=== PATIENT | female | born 1935 | race Caucasian/White ===

== ENCOUNTER 2024-04-14 16:07 | Inpatient (IN) | payer BC, MEDICAID ==
[~2024-04-14] VITALS: Ht 172.7 cm; Wt 100.0 kg
[2024-04-14 16:32] LABS: BASOPHILS % (AUTO) 0.2 % (0-1); EOSINOPHILS # (AUTO) 0.2 X10'3 (0-0.9); EOSINOPHILS % (AUTO) 2.3 % (0-6); HEMATOCRIT 28.3 % (35.0-45.0); HEMOGLOBIN 9.5 g/dl (12.0-16.0); LYMPHOCYTES # (AUTO) 0.8 X10'3 (1.1-4.8); LYMPHOCYTES % (AUTO) 9.6 % (21-51); MEAN CORPUSCULAR HEMOGLOBIN 30.8 PG (27.0-31.0); MEAN CORPUSCULAR HGB CONC 33.5 g/dL (33.0-36.5); MEAN PLATELET VOLUME 8.6 FL (7.4-10.4); MONOCYTES # (AUTO) 0.8 X10'3 (0-0.9); MONOCYTES % (AUTO) 9.5 % (2-12); NEUTROPHILS # (AUTO) 6.3 X10'3 (1.8-7.7); NEUTROPHILS % (AUTO) 78.4 % (42-75); PLATELET COUNT 270 X10'3 (140-440); RED BLOOD COUNT 3.07 X10'6 (4.20-5.60); RED CELL DISTRIBUTION WIDTH 15.9 % (11.5-14.5)
[2024-04-14 16:52] LABS: ALANINE AMINOTRANSFERASE 12 U/L (12-78); ALBUMIN 3.3 G/DL (3.4-5.0); ALBUMIN/GLOBULIN RATIO 0.9 (1.1-1.5); ALKALINE PHOSPHATASE 57 IU/L (46-116); ANION GAP 6 (8-16); ASPARTATE AMINO TRANSFERASE 12 U/L (10-37); BILIRUBIN,TOTAL 0.4 MG/DL (0.1-1.0); BLOOD UREA NITROGEN 75 MG/DL (7-18); BUN/CREATININE RATIO 34.1 (10.0-20.0); CALCIUM 9.3 MG/DL (8.5-10.1); CHLORIDE 106 MMOL/L (99-107); GLUCOSE 88 MG/DL (70-104); POTASSIUM 5.1 MMOL/L (3.5-5.1); SODIUM 139 MMOL/L (135-145); TOTAL CARBON DIOXIDE 26.7 MMOL/L (24-32); TOTAL PROTEIN 7.1 G/DL (6.4-8.2); eCRCL 19 ML/MIN; eGFR 21 ML/MIN
[2024-04-14 17:02] LABS: PRO BRAIN NATRIURETIC PEPTIDE 16128 PG/ML (0-450)
[2024-04-14] MEDS: normal saline 500ml IV soln 500 ML IV ONE ×2 (17:23→17:24)
[2024-04-14] MEDS ORDERED: magnesium hydroxide 30ml (MOM) UD suspension PO PRN (20:35)
[2024-04-14] MEDS ORDERED: potassium Cl 20 mEq SR tablet PO PRN (20:35)
[2024-04-14] MEDS ORDERED: ondansetron/PF 4mg/2ml inj IV PRN (20:35)
[2024-04-14] MEDS ORDERED: acetaminophen 325mg tablet PO PRN (20:35)
[2024-04-14] MEDS ORDERED: potassium Cl 40MEQ/1/2NS 520ml 520 ML IV PRN (20:35)
[2024-04-14] MEDS ORDERED: magnesium sulf-water 4G/100mL 100 ML IV PRN (20:35)
[2024-04-14] MEDS ORDERED: magnesium Cl slow-release 64mg tablet PO PRN (20:35)
[2024-04-14] MEDS ORDERED: mag hydrox/Alum hydrox/simeth 30ml oral suspension PO PRN (20:35)
[2024-04-14] MEDS ORDERED: magnesium sulf-water 2g/50mL 50 ML IV PRN (20:35)
[2024-04-14 21:13] LABS: APTT 27 SECONDS (22-32); INR 1.1 INR; PROTHROMBIN TIME 11.2 SECONDS (9.0-12.0)
[2024-04-14 21:39] LABS: ALBUMIN 3.2 G/DL (3.4-5.0); ANION GAP 7 (8-16); BLOOD UREA NITROGEN 70 MG/DL (7-18); BUN/CREATININE RATIO 31.4 (10.0-20.0); CALCIUM 9.4 MG/DL (8.5-10.1); CHLORIDE 105 MMOL/L (99-107); CREATININE 2.23 MG/DL (0.40-0.90); GLUCOSE 90 MG/DL (70-104); MAGNESIUM 2.2 MG/DL (1.5-2.4); POTASSIUM 4.8 MMOL/L (3.5-5.1); SODIUM 135 MMOL/L (135-145); TOTAL CARBON DIOXIDE 23.4 MMOL/L (24-32); eCRCL 18 ML/MIN; eGFR 21 ML/MIN
[2024-04-14 21:43] LABS: BILIRUBIN,URINE NEGATIVE (Neg); CLARITY,URINE CLEAR (Clear); COLOR,URINE YELLOW (Yellow); GLUCOSE, URINE NEGATIVE (Neg); KETONES,URINE NEGATIVE (Neg); LEUKOCYTE ESTERASE ,URINE TRACE (Neg); NITRITES, URINE NEGATIVE (Neg); OCCULT BLOOD,URINE NEGATIVE (Neg); PH,URINE 6.5 (4.8-8.0); PROTEIN,URINE NEGATIVE (Neg); UROBILINOGEN,URINE 0.2 E.U/dL (0.2-1.0)
[2024-04-14 21:44] LABS: BACTERIA,URINE FEW /HPF (Neg); RBC,URINE NONE SEEN /HPF (0-2); SQUAMOUS EPITHELIAL CELL,UR FEW /LPF (FEW); UA COLLECTION TYPE URINAL; WBC,URINE 0-4 /HPF (0-4)
[2024-04-14 22:05] LABS: URINE AMPHETAMINE SCREEN NEGATIVE (Neg); URINE BARBITUATE SCREEN NEGATIVE (Neg); URINE BENZODIAZEPINES SCREEN NEGATIVE (Neg); URINE CANNABINOID SCREEN NEGATIVE (Neg); URINE COCAINE SCREEN NEGATIVE (Neg); URINE METHADONE SCREEN NEGATIVE (Neg); URINE OPIATE SCREEN NEGATIVE (Neg); URINE PHENCYCLIDINE SCREEN NEGATIVE (Neg)
[2024-04-14] MEDS: K and/or MAG REPLACEMENT MC SCH (22:44)
[2024-04-15] VITALS (8 sets, daily range): BP systolic 129–163; BP diastolic 38–64; PULSE 64–79; RESP 12–23; TEMP 97.2–98.7; O2SAT 92–99
[2024-04-15] MEDS ORDERED: DULO60CA65 PO (00:01)
[2024-04-15] MEDS ORDERED: ASPI-1397 PO (00:01)
[2024-04-15] MEDS ORDERED: FAMO20TA8 PO (00:01)
[2024-04-15] MEDS ORDERED: AMLO10TA13 PO (00:01)
[2024-04-15] MEDS ORDERED: POTA-206 PO (00:01)
[2024-04-15] MEDS ORDERED: LOSA25TA41 PO (00:01)
[2024-04-15] MEDS ORDERED: AMIT75TA7 PO (00:01)
[2024-04-15] MEDS ORDERED: DOCU-391 PO (00:01)
[2024-04-15] MEDS ORDERED: FURO40TA4 PO (00:01)
[2024-04-15] MEDS ORDERED: ATOR20TA66 PO (00:01)
[2024-04-15] MEDS ORDERED: FENO48TA10 PO (00:02)
[2024-04-15] MEDS: normal saline 1000ml 1,000 ML IV SCH (00:29)
[2024-04-15] MEDS: CefTRIAXone 2gm/D5W 50ml BAG 50 ML IV SCH ×2 (00:33→23:25)
[2024-04-15] MEDS: amLODIPine 5mg tablet PO SCH (00:37)
[2024-04-15 07:36] LABS: BASOPHILS % (AUTO) 0.4 % (0-1); EOSINOPHILS # (AUTO) 0.2 X10'3 (0-0.9); HEMATOCRIT 26.4 % (35.0-45.0); HEMOGLOBIN 8.9 g/dl (12.0-16.0); LYMPHOCYTES # (AUTO) 0.8 X10'3 (1.1-4.8); LYMPHOCYTES % (AUTO) 12.1 % (21-51); MEAN CORPUSCULAR HEMOGLOBIN 30.8 PG (27.0-31.0); MEAN CORPUSCULAR HGB CONC 33.5 g/dL (33.0-36.5); MEAN CORPUSCULAR VOLUME 91.9 FL (78-98); MEAN PLATELET VOLUME 8.7 FL (7.4-10.4); MONOCYTES # (AUTO) 0.6 X10'3 (0-0.9); MONOCYTES % (AUTO) 9.2 % (2-12); NEUTROPHILS # (AUTO) 4.7 X10'3 (1.8-7.7); NEUTROPHILS % (AUTO) 75.3 % (42-75); PLATELET COUNT 256 X10'3 (140-440); RED BLOOD COUNT 2.88 X10'6 (4.20-5.60); WHITE BLOOD COUNT 6.2 X10'3 (4.5-11.0)
[2024-04-15 07:44] LABS: APTT 22 SECONDS (22-32); INR 1.1 INR; PROTHROMBIN TIME 11.2 SECONDS (9.0-12.0)
[2024-04-15 08:07] LABS: % IRON SATURATION 7 % (11-46); IRON 17 UG/DL (49-151); TOTAL IRON BINDING CAPACITY 251 UG/DL (259-388)
[2024-04-15 08:19] LABS: ALANINE AMINOTRANSFERASE 11 U/L (12-78); ALBUMIN 2.9 G/DL (3.4-5.0); ALBUMIN/GLOBULIN RATIO 0.8 (1.1-1.5); ALKALINE PHOSPHATASE 53 IU/L (46-116); ANION GAP 7 (8-16); ASPARTATE AMINO TRANSFERASE 17 U/L (10-37); BILIRUBIN,TOTAL 0.4 MG/DL (0.1-1.0); BLOOD UREA NITROGEN 58 MG/DL (7-18); BUN/CREATININE RATIO 32.4 (10.0-20.0); CALCIUM 9.2 MG/DL (8.5-10.1); CHLORIDE 106 MMOL/L (99-107); CHOLESTEROL 99 MG/DL (0-200); CREATININE 1.79 MG/DL (0.40-0.90); FERRITIN 160 NG/ML (8-252); GLUCOSE 86 MG/DL (70-104); HDL CHOLESTEROL 49 MG/DL (35-60); LDL CHOLESTEROL 41 MG/DL (50-100); PHOSPHORUS 3.7 MG/DL (2.3-4.5); POTASSIUM 3.7 MMOL/L (3.5-5.1); SODIUM 137 MMOL/L (135-145); THYROID STIMULATING HORMONE 1.42 ulU/ml (0.34-4.50); TOTAL PROTEIN 6.6 G/DL (6.4-8.2); TRIGLYCERIDES 27 MG/DL (20-135); eCRCL 23 ML/MIN; eGFR 27 ML/MIN
[2024-04-15] MEDS: docusate sod 100mg capsule PO SCH (09:41)
[2024-04-15] MEDS: duloxetine 30mg CAPSULE.DR PO SCH (09:41)
[2024-04-15] MEDS: aspirin 81mg, enteric-coated 1 TAB TABLET.DR PO SCH (09:41)
[2024-04-15] MEDS: heparin, porcine 5000 units/ml vial SQ SCH (09:42)
[2024-04-15] MEDS: atorvastatin 20mg tablet PO SCH (09:42)
[2024-04-15] MEDS: fenofibrate 48mg tablet PO SCH (09:42)
[2024-04-15] MEDS: famotidine 20mg tablet PO SCH (09:42)
[2024-04-15 11:01] LABS: HEMOGLOBIN A1C 5.4 % (4.5-6.2)
[2024-04-15] MEDS: losartan 25mg tablet PO SCH (12:57)
[2024-04-15] MEDS: acetaminophen 325mg tablet PO PRN (19:34)
[2024-04-16] VITALS (8 sets, daily range): BP systolic 150–192; BP diastolic 47–89; PULSE 74–94; RESP 12–20; TEMP 97.2–98.6; O2SAT 95–99
[2024-04-16] MEDS: duloxetine 30mg CAPSULE.DR PO SCH (07:47)
[2024-04-16 08:37] LABS: ALANINE AMINOTRANSFERASE 7 U/L (12-78); ALBUMIN 2.9 G/DL (3.4-5.0); ALBUMIN/GLOBULIN RATIO 0.7 (1.1-1.5); ALKALINE PHOSPHATASE 59 IU/L (46-116); ANION GAP 8 (8-16); ASPARTATE AMINO TRANSFERASE 17 U/L (10-37); BILIRUBIN,TOTAL 0.3 MG/DL (0.1-1.0); BLOOD UREA NITROGEN 32 MG/DL (7-18); BUN/CREATININE RATIO 29.4 (10.0-20.0); CALCIUM 9.6 MG/DL (8.5-10.1); CHLORIDE 106 MMOL/L (99-107); CREATININE 1.09 MG/DL (0.40-0.90); GLUCOSE 106 MG/DL (70-104); MAGNESIUM 1.7 MG/DL (1.5-2.4); PHOSPHORUS 2.5 MG/DL (2.3-4.5); POTASSIUM 3.3 MMOL/L (3.5-5.1); SODIUM 139 MMOL/L (135-145); TOTAL CARBON DIOXIDE 24.9 MMOL/L (24-32); TOTAL PROTEIN 7.3 G/DL (6.4-8.2); eCRCL 37 ML/MIN; eGFR 48 ML/MIN
[2024-04-16 08:38] LABS: APTT 23 SECONDS (22-32); INR 1.1 INR; PROTHROMBIN TIME 11.4 SECONDS (9.0-12.0)
[2024-04-16 08:58] LABS: BASOPHILS % (AUTO) 0.3 % (0-1); EOSINOPHILS # (AUTO) 0.2 X10'3 (0-0.9); EOSINOPHILS % (AUTO) 2.7 % (0-6); HEMATOCRIT 34.1 % (35.0-45.0); HEMOGLOBIN 11.2 g/dl (12.0-16.0); LYMPHOCYTES # (AUTO) 0.7 X10'3 (1.1-4.8); LYMPHOCYTES % (AUTO) 8.9 % (21-51); MEAN CORPUSCULAR HEMOGLOBIN 30.3 PG (27.0-31.0); MEAN CORPUSCULAR HGB CONC 32.8 g/dL (33.0-36.5); MEAN CORPUSCULAR VOLUME 92.4 FL (78-98); MEAN PLATELET VOLUME 8.3 FL (7.4-10.4); MONOCYTES # (AUTO) 0.6 X10'3 (0-0.9); MONOCYTES % (AUTO) 7.8 % (2-12); NEUTROPHILS # (AUTO) 6.3 X10'3 (1.8-7.7); NEUTROPHILS % (AUTO) 80.3 % (42-75); PLATELET COUNT 323 X10'3 (140-440); RED BLOOD COUNT 3.69 X10'6 (4.20-5.60); RED CELL DISTRIBUTION WIDTH 15.5 % (11.5-14.5); WHITE BLOOD COUNT 7.8 X10'3 (4.5-11.0)
[2024-04-16] MEDS: potassium Cl 20 mEq SR tablet PO PRN (09:03)
[2024-04-16 11:09] LABS: TRANSFERRIN 201 mg/dL (149-313)
[2024-04-16] MEDS: hydrALAZINE 20mg/ml inj. IV PRN (13:43)
[2024-04-16 14:16] LABS: FOLATE SERUM(FOLIC) >20.0 ng/mL (>3.0)
[2024-04-16] MEDS: amitriptyline 25mg tablet PO SCH (19:36)
[2024-04-16] MEDS: docusate sod 100mg capsule PO SCH (19:43)
[2024-04-17] MEDS: labetalol 20mg/4ml (5mg/ml) syringe IV ONE (01:14)
[2024-04-17] MEDS: nystatin 15 GM powder TP SCH (01:45)
[2024-04-17 02:00] VITALS: BP_SYST 136; BP_SYST 165; BP_DIAS 59; BP_DIAS 71; PULSE 78; RESP 23; TEMP 97.4; O2SAT 97
[2024-04-17 06:00] VITALS: BP 189/60; PULSE 81; RESP 23; TEMP 97.7; O2SAT 97
[2024-04-17 07:35] LABS: BASOPHILS % (AUTO) 0.6 % (0-1); EOSINOPHILS # (AUTO) 0.1 X10'3 (0-0.9); EOSINOPHILS % (AUTO) 1.6 % (0-6); HEMOGLOBIN 10.9 g/dl (12.0-16.0); LYMPHOCYTES # (AUTO) 0.9 X10'3 (1.1-4.8); LYMPHOCYTES % (AUTO) 12.1 % (21-51); MEAN CORPUSCULAR VOLUME 90.7 FL (78-98); MEAN PLATELET VOLUME 8.3 FL (7.4-10.4); MONOCYTES # (AUTO) 0.6 X10'3 (0-0.9); MONOCYTES % (AUTO) 8.3 % (2-12); NEUTROPHILS % (AUTO) 77.4 % (42-75); PLATELET COUNT 366 X10'3 (140-440); RED BLOOD COUNT 3.64 X10'6 (4.20-5.60); RED CELL DISTRIBUTION WIDTH 15.7 % (11.5-14.5); WHITE BLOOD COUNT 7.7 X10'3 (4.5-11.0)
[2024-04-17] MEDS: famotidine 20mg tablet PO SCH (07:41)
[2024-04-17 07:50] LABS: APTT 24 SECONDS (22-32); INR 1.1 INR; PROTHROMBIN TIME 11.2 SECONDS (9.0-12.0)
[2024-04-17 08:00] VITALS: RESP 23; O2SAT 97
[2024-04-17 08:00] LABS: ALANINE AMINOTRANSFERASE 15 U/L (12-78); ALBUMIN/GLOBULIN RATIO 0.7 (1.1-1.5); ALKALINE PHOSPHATASE 56 IU/L (46-116); ANION GAP 11 (8-16); ASPARTATE AMINO TRANSFERASE 10 U/L (10-37); BILIRUBIN,TOTAL 0.3 MG/DL (0.1-1.0); BLOOD UREA NITROGEN 25 MG/DL (7-18); BUN/CREATININE RATIO 26.9 (10.0-20.0); CALCIUM 9.6 MG/DL (8.5-10.1); CHLORIDE 110 MMOL/L (99-107); CREATININE 0.93 MG/DL (0.40-0.90); GLUCOSE 111 MG/DL (70-104); MAGNESIUM 1.6 MG/DL (1.5-2.4); PHOSPHORUS 2.5 MG/DL (2.3-4.5); POTASSIUM 3.6 MMOL/L (3.5-5.1); SODIUM 145 MMOL/L (135-145); TOTAL CARBON DIOXIDE 23.9 MMOL/L (24-32); TOTAL PROTEIN 7.1 G/DL (6.4-8.2); eCRCL 44 ML/MIN; eGFR 57 ML/MIN
[2024-04-17] MEDS ORDERED: non-formulary drug (Amlodipine Besylate 1 TAB) PO SCH (08:00)
[2024-04-17 11:00] VITALS: BP 168/66; PULSE 82; RESP 22; TEMP 98.5; O2SAT 95
[2024-04-17 11:59] VITALS: BP_SYST 168; PULSE 82
[2024-04-17] MEDS ORDERED: LEVO-65 PO (13:06)
== END 2024-04-17 14:09 | disposition home health service (06) | DRG 682 ==
LOC: ER 16:08 → ED HOLD 20:39 → PCU 3S 04-15 02:44
PROVIDERS: ADMIT Surgery Surgical Critical Care; ATTEND Internal Medicine
DX: N17.0 Acute kidney failure with tubular necrosis (principal); G93.41 Metabolic encephalopathy; J96.01 Acute respiratory failure with hypoxia; I13.0 Hypertensive heart and chronic kidney disease with heart failure and stage 1 through stage 4 chronic kidney disease, or unspecified chronic kidney disease; I50.32 Chronic diastolic (congestive) heart failure; N18.4 Chronic kidney disease, stage 4 (severe); E87.6 Hypokalemia; Z66 Do not resuscitate; M79.7 Fibromyalgia; J44.9 Chronic obstructive pulmonary disease, unspecified; R00.1 Bradycardia, unspecified; E78.5 Hyperlipidemia, unspecified; D64.9 Anemia, unspecified; Z79.899 Other long term (current) drug therapy; Z79.82 Long term (current) use of aspirin; Z88.0 Allergy status to penicillin; Z88.5 Allergy status to narcotic agent; Z88.8 Allergy status to other drugs, medicaments and biological substances; Z91.040 Latex allergy status
CPT/HCPCS: 36415; 70450; 71045; 80048; 80053; 80061; 80305; 81001; 82607; 82728; 82746; 83036; 83540; 83550; 83605; 83735; 83880; 84100; 84439; 84443; 84466; 84484; 85025; 85610; 85730; 87040; 87081; 92508; 92616; 93005; 93306; 97110; 97161; 97162; 97530; 97542; 99285; A6213; G0378; J0360; J0696; J1644; J3490; J7030; J7040

== ENCOUNTER 2024-07-30 09:19 | Emergency (ER) | payer BC, MEDICAID ==
[~2024-07-30] VITALS: Ht 157.5 cm; Wt 65.5 kg
[~2024-07-30 09:19] MED LIST: AMIT75TA7 PO; AMLO10TA13 PO; ASPI-1397 PO; ATOR20TA66 PO; DOCU-391 PO; DULO60CA65 PO; FAMO20TA8 PO; FENO48TA10 PO; FURO40TA4 PO; LOSA25TA41 PO; POTA-206 PO
[2024-07-30 09:27] VITALS: TEMP 98.4
--- NOTE | 2024-07-30 10:11 | Physician Documentation ---
History of Present Illness ~ Chief Complaint: Hypertension Stated Complaint: HYPERTENSION Time Seen by MD: 10:09 Primary Medical Doctor: UNSURE Source: RN/MD, EMS Mode of Arrival: EMS HPI 88-year-old female history of hypertension presenting for elevated blood pressure and headache. She was just admitted to this hospital for symptomatic bradycardia and hypertension. Due to her bradycardia Her carvedilol was discontinued and her blood pressure was difficult to manage she was started on losartan amlodipine hydralazine. Today she developed headache, blurry vision and had systolic blood pressure of [facility]. Presently she is feeling much improved. 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 Medication Reconciliation Allergies: Coded Allergies: Penicillins (Verified Allergy, Severe, TROUBLE BREATHING, 04/14/24) adhesive tape (Verified Allergy, Severe, 04/14/24) codeine (Verified Allergy, Severe, PROJECTILE VOMITING, 04/14/24) cyclobenzaprine (Verified Allergy, Severe, 04/14/24) iodine (Verified Allergy, Severe, RASH, CARDIAC ABNORMALITIES, 04/14/24) pentazocine (Verified Allergy, Severe, VOMITING, 04/14/24) baclofen (Verified Allergy, Unknown, dysphagia, 04/14/24) hydrocodone (Verified Allergy, Unknown, 04/14/24) latex (Verified Allergy, Unknown, 04/14/24) morphine (Verified Allergy, Unknown, flushing, projectile vomiting, 04/14/24) Scheduled Amitriptyline HCl (Amitriptyline HCl), 1 TAB PO HS, (Reported) Amlodipine Besylate (Amlodipine Besylate), 1 TAB PO DAILY, (Reported) Aspirin (Aspirin EC), 1 TAB PO DAILY, (Reported) Atorvastatin Calcium (Atorvastatin Calcium), 1 TAB PO DAILY, (Reported) Docusate Sodium (Docusate Sodium), 100 MG PO BID, (Reported) Duloxetine HCl (Duloxetine HCl), 1 CAP PO DAILY, (Reported) Famotidine (Famotidine), 1 TAB PO DAILY, (Reported) Fenofibrate Nanocrystallized (Fenofibrate), 1 TAB PO DAILY, (Reported) Furosemide (Furosemide), 1 TAB PO DAILY, (Reported) Losartan Potassium (Losartan Potassium), 1 TAB PO DAILY, (Reported) Potassium Chloride (K-Dur), 10 MEQ PO DAILY, (Reported) Past Medical History Past Medical History: Congestive Heart Failure, COPD Review of Systems All Other Systems at this time: Reviewed and Negative Constitutional: Denies: fever Respiratory: Denies: cough, shortness of breath Cardiovascular: Denies: chest pain Gastrointestinal: Denies: abdomen distended, abdominal pain Physical Exam Vital Signs: Temperature: 98.4, Source: Oral, Heart Rate: 62, Respiratory Rate: 16, BP: 165/51, Pulse Oximetry: 98 Oxygen Flow Rate: 0 Physical Exam Well-appearing no distress resting comfortably in bed Cranial nerves 2-12 intact extraocular motions intact speech intact no dysmetria no aphasia no dysarthria Strength 5/5 bilateral upper and lower extremities Cardiac no murmur Pulmonary clear to auscultation bilaterally Abdomen is soft nontender Progress Progress Note Reassess patient at 12:00 p.m.. Her headache has resolved. Her blood pressure has remained normal for several hours. I independently interpreted her labs shows improving kidney function no other acute abnormalities Results/Orders Reviewed/noted all lab results: Yes Results/Orders Completed Orders - CRYSTAL HAMPTON MD BMP (07/30/24 10:16) Acetaminophen 325mg Tablet (Tylenol Tabl (07/30/24 10:35) Medications Received in ER Medications (Trade) Dose Ordered Sig/Emilio Route PRN Reason Start Time Stop Time Status Last Admin Dose Admin (Tylenol tablet) 975 mg ONCE ONCE PO 07/30/24 10:35 07/30/24 10:36 DC 07/30/24 11:04 975 MG Vital Signs 07/30/24 07/30/24 07/30/24 09:27 09:42 11:06 Temp 98.4 Pulse 62 60 Resp 16 16 B/P (MAP) 165/51 152/48 (82) Pulse Ox 98 99 O2 Flow Rate 0 0 Laboratory Tests Test 07/30/24 10:43 Sodium Level 140 Potassium Level 4.9 Chloride Level 111 H Carbon Dioxide Level 20.6 L Anion Gap 8 Blood Urea Nitrogen 43 H Creatinine 0.95 H Estimated GFR/1.73 m2 56 BUN/Creatinine Ratio 45.3 H Glucose Level 142 H Calcium Level 9.4 Albumin 2.8 L Chemistry Comments EKG/XRAY/CT/US/VASC/MRI EKG : Additional Comment EKG independently interpreted by myself time 9:21 a.m. indication symptomatic patient normal sinus rhythm rate 63 normal axis normal intervals no ST or T-wave abnormality Medical Decision Making Additional info obtained from: old records Findings Discharge summary July 2024 Departure Disposition: 03 ALF [facility] Impression: Primary Impression: Hypertension Qualified Codes: I10 - Essential (primary) hypertension Additional Impression Text Patient presented for headache and elevated blood pressure just prior to receiving her antihypertensives. Her symptoms resolved by time she arrived in our ED. Her blood pressure also resolved in his completely normalized. Additional Instructions: If you have any reoccurrence of your headache please return to the emergency department Referrals: NO PRIMARY CARE PROVIDER (PCP) Signature Scribe Signature: No scribe Attestation: No scribe CRYSTAL HAMPTON MD July 30, 2024 10:11
[2024-07-30 11:02] LABS: ALBUMIN 2.8 G/DL (3.4-5.0); ANION GAP 8 (8-16); BLOOD UREA NITROGEN 43 MG/DL (7-18); BUN/CREATININE RATIO 45.3 (10.0-20.0); CALCIUM 9.4 MG/DL (8.5-10.1); CHLORIDE 111 MMOL/L (99-107); CREATININE 0.95 MG/DL (0.40-0.90); GLUCOSE 142 MG/DL (70-104); SODIUM 140 MMOL/L (135-145); TOTAL CARBON DIOXIDE 20.6 MMOL/L (24-32); eGFR 56 ML/MIN
[2024-07-30 11:04] LABS: POTASSIUM 4.9 MMOL/L (3.5-5.1)
[2024-07-30] MEDS: acetaminophen 325mg tablet PO ONE (11:04)
[2024-07-30 12:56] VITALS: BP 156/45; PULSE 62; RESP 16; O2SAT 98
--- NOTE | 2024-07-30 17:16 | ELECTROCARDIOGRAPH REPORT ---
[facility] Test Date: 2024-07-30 Test Time: 09:21:48 Pat Name: SEAN TRINH Department: EMERGENCY ROOM Room: Gender: F Document Review Specialist: : [id number] Requested By: DEPARTMENT EMERGENCY Order Number: [id number] Reading MD: Dr. Lenny Lu Measurements Intervals [place] Rate: 63 P: 72 [place]: 148 QRS: 22 QRSD: 94 T: 74 QT: 405 QTc: 415 Interpretive Statements Sinus rhythm Consider anterior infarct Electronically Signed On 08-01-2024 11:02:[address] Lenny Lu Please click the below link to view image of tracing.
== END 2024-07-30 13:00 ==
LOC: ER 09:20
DX: I11.0 Hypertensive heart disease with heart failure (principal); I50.9 Heart failure, unspecified; J44.9 Chronic obstructive pulmonary disease, unspecified; Z88.0 Allergy status to penicillin; Z88.5 Allergy status to narcotic agent; Z88.8 Allergy status to other drugs, medicaments and biological substances; Z91.041 Radiographic dye allergy status
CPT/HCPCS: 36415; 80048; 93005; 99284